=== PATIENT | female | born 1985 | race Caucasian/White ===

== ENCOUNTER 2018-01-26 12:49 | Emergency (ER) | payer SELFPAY ==
--- NOTE | 2018-01-26 13:08 | EDM.PDOC ---
ED HPI GENERAL MEDICAL PROBLEM - General Chief Complaint: Lower Extremity Injury/Pain Stated Complaint: Left knee pain Time Seen by Provider: 01/26/18 13:00 Source of Information: Reports: Patient. Denies: Old Records (No [facility] records available) History Limitations: Reports: No Limitations - History of Present Illness INITIAL COMMENTS - FREE TEXT/NARRATIVE: The patient drove herself to the emergency room via private automobile for evaluation of progressive 8/10 sharp left knee pain after a minor fall secondary to slipping on the ice outside of her friend's house at about 23:00 hours yesterday evening. The patient did take 1000 mg of Tylenol at about 9 AM today with additional ice packs, however no significant improvement in symptoms. She has not had an injury to this knee in the past, although she did have a minor right knee sprain last year. The patient denies any chest pain/ pressure, heart flutter, dizziness, orthostasis, orthopnea, diaphoresis, paresthesias, recent decreased exercise tolerance, or any other anginal-type symptoms. No recent history of abdominal pain, heartburn, nausea, diarrhea, melena, gross hematochezia, or any food intolerance, including fatty foods, etc.. The patient also denies any recent fever, cough, wheezing, dyspnea, etc.. Onset: Sudden Onset Date: 01/25/18 Onset Time: 23:00 Duration: Constant, Getting Worse Location: Reports: Lower Extremity, Left. Denies: Head, Face, Neck, Chest, Abdomen, Back, Pelvis, Upper Extremity, Left, Upper Extremity, Right, Lower Extremity, Right, Radiates to Quality: Reports: Same as Previous Episode, Sharp Severity: Moderate Improves with: Reports: Rest Worsens with: Reports: Movement Context: Reports: Trauma (As above) Associated Symptoms: Denies: Confusion, Chest Pain, Cough, Diaphoresis, Fever/ Chills, Malaise, Nausea/Vomiting, Rash, Shortness of Breath, Syncope, Weakness Treatments RECORD CENTER COORDINATOR: Reports: Acetaminophen, Cold Therapy Left Knee Pain Score (Numeric/FACES): 8 - Related Data Allergies Allergy/AdvReac Type Severity Reaction Status Date / Time No Known Allergies Allergy Verified 01/26/18 12:56 Home Meds: Home Meds Calcium Carbonate 500 mg PO ASDIRECTED PRN 01/26/18 [History] Past Medical History HEENT History: Reports: Allergic Rhinitis, Impaired Vision, Other (See Below). Denies: Cataract, Glaucoma, Hard of Hearing, Macular Degeneration, Retinal Detachment Other HEENT History: Patient wears glasses Cardiovascular History: Reports: None, Other (See Below). Denies: Afib, Aneurysm, Arrhythmia, Blood Clots/VTE/DVT, CAD, Cardiomyopathy, Heart Failure, Heart Murmur, High Cholesterol, Hypertension, Syncope Other Cardiovascular History: She does not know cholesterol status Respiratory History: Reports: None. Denies: Asthma, COPD, Intubation, Difficult , Intubation, Previous, PE, Pneumothorax, Sleep Apnea Gastrointestinal History: Reports: GERD. Denies: Bowel Obstruction, Celiac Disease, Cholelithiasis, Chronic Constipation, Chronic Diarrhea, Fecal Incontinence, Gastritis, GI Bleed, Hepatitis, Inflammatory Bowel Disease, Irritable Bowel Syndrome, Jaundice, Pancreatitis, PUD Genitourinary History: Reports: Chronic Renal Insuffiency, UTI, Recurrent, Other (See Below). 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 First by , with triplet delivery and subsequent follow- up all without complications during pregnancies or deliveries) LMP (Approximate): 1 Week (Normal) Musculoskeletal History: Reports: Arthritis, Back Pain, Chronic, Neck Pain, Chronic, Osteoarthritis, Other (See Below). Denies: Fracture, Gout, RA, SLE Other Musculoskeletal History: Right knee sprain in 2017 Neurological History: Reports: Headaches, Chronic, Migraines. Denies: Cerebral Aneurysms, Concussion, CVA, Head Trauma, MS, Neuropathy, Peripheral, Parkinson's , Seizure, TIA Psychiatric History: Reports: Anxiety, Depression. Denies: Abuse, Victim of, ADD, ADHD, Psych Hospitalization(s), PTSD, Suicide Attempt, Suicidal Ideation Endocrine/Metabolic History: Reports: None. Denies: Diabetes, Gestational, Diabetes, Type I, Diabetes, Type II, Diabetes Mellitus, Type 3c, Hypothyroidism , IDDM Hematologic History: Reports: None. Denies: Anemia, Blood Transfusion(s), Iron Deficiency Immunologic History: Reports: None. Denies: AIDS, HIV, SLE Oncologic (Cancer) History: Reports: None. Denies: Basal Cell Carcinoma, Breast , Cervix, Hodgkin's Lymphoma, Leukemia, Lymphoma, Malignant Melanoma, Non- Hodgkin's Lymphoma, Squamous Cell Carcinoma Dermatologic History: Reports: Eczema, Other (See Below). Denies: Psoriasis Other Dermatologic History: Dry skin - Infectious Disease History Infectious Disease History: Reports: Chicken Pox, Scarlet Fever, Shingles. Denies: C-Difficile, Measles, Meningitis, Mononucleosis, MRSA, Mumps, Rheumatic Fever, Rubella, TB, VRE - Past Surgical History Head Surgeries/Procedures: Reports: None HEENT Surgical History: Reports: Myringotomy w Tube(s), Oral Surgery, Other ( See Below). Denies: Adenoidectomy, Cataract Surgery, Eye Surgery, Laser Surgery , LASIK, Naso-Sinus Surgery, Tonsillectomy Other HEENT Surgeries/Procedures: [place] teeth extraction 4 at age 28. Bilateral PE tubes Cardiovascular Surgical History: Reports: None. Denies: Varicose, Vascular Surgery Respiratory Surgical History: Reports: None. Denies: Thoracentesis GI Surgical History: Reports: None. Denies: Appendectomy, Cholecystectomy, Colonoscopy, EGD, Hernia, Abdominal, Hernia, Inguinal, Hernia Repair/Other Female Surgical History: Reports: Section, Tubal Ligation, Other ( See Below). Denies: Breast Biopsy, D&C, Hysterectomy, Oophorectomy, Salpingo- Oophorectomy Other Female Surgeries/Procedures: Bilateral tubal ligation on 12/04 2013 Endocrine Surgical History: Reports: None. Denies: Thyroid Biopsy Neurological Surgical History: Reports: None. Denies: C-Spine, Discectomy, Laminectomy, Lumbar Spine, Sacral Spine, Spinal Fusion, Vertebroplasty Musculoskeletal Surgical History: Denies: Arthroscopic Procedure, Carpal Tunnel , Ganglion Cyst, Joint Replacement, Knee Replacement, ORIF, Shoulder Surgery Oncologic Surgical History: Reports: None. Denies: Biopsy of Breast Dermatological Surgical History: Reports: Skin Biopsy, Other (See Below) Other Dermatological Surgeries/Procedures: Skin biopsies in November 2017 for evaluation of eczema - Past Imaging History Past Imaging History: Reports: Ultrasound (OB ultrasounds) Social & Family History - Tobacco Use Smoking Status *Q: Current Every Day Smoker Tobacco Use Within Last Twelve Months: Cigarettes Years of Tobacco use: 15 Packs/Tins Daily: 0.5 Packs/Tins Daily Comment: Smoking at age 17 with maximum use of 1 pack per day Used Tobacco, but Quit: No Smoking Cessation Information Provided To Patient: Yes Second Hand Smoke Exposure: No Second Hand Smoke Education Provided: No - Caffeine Use Caffeine Use: Reports: Coffee (1 cup 2 times per week), Soda (1 soda per day). Denies: Energy Drinks, Tea - Alcohol Use Alcohol Use History: Yes Days Per Week of Alcohol Use: 0 (No previous DWIs, problems with alcohol abuse, etc.) Number of Drinks Per Day: 4 (Usually beer) Number of Drinks Per Day Comment: Usually drinks about twice per month Total Drinks Per Week: 0 Alcohol Use in Last Twelve Months: Yes Alcohol Use Frequency: Rarely - Recreational Drug Use Recreational Drug Use: No Drug Use in Last 12 Months: No Recreational Drug Type: Denies: Amphetamines (Speed), Cocaine, Heroin, Inhalants (Glues, Solvents, Aerosols), LSD (Acid), Marijuana/Hashish, Methamphetamine, Oxycodone - Living Situation & Occupation Living situation: Reports: ( in 2013 however since 2016 , 5 children), with Family (children) 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 ED EXAM, GENERAL - Physical Exam Exam: See Below Exam Limited By: No Limitations General Appearance: Alert, WD/WN, No Apparent Distress Head: Atraumatic, Normocephalic. No: Facial Swelling, Facial Tenderness, Sinus Tenderness Neck: Normal Inspection, Supple, Non-Tender, Full Range of Motion. No: Lymphadenopathy (L), Lymphadenopathy (R), Thyromegaly Respiratory/Chest: No Respiratory Distress, Lungs Clear, Normal Breath Sounds, No Accessory Muscle Use, Chest Non-Tender. No: Pleural Rub, Retractions Cardiovascular: Normal Peripheral Pulses, Regular Rate, Rhythm, No Edema, No Gallop, No JVD, No Murmur, No Rub. No: Gallop/S3, Gallop/S4, Friction Rub Peripheral Pulses: 2+: Radial (L), Radial (R), Dorsalis Pedis (L), Dorsalis Pedis (R) GI/Abdominal: Normal Bowel Sounds, Soft, Non-Tender, No Organomegaly, No Distention, No Abnormal Bruit, No Mass, Pelvis Stable. No: Guarding (Female) Exam: Deferred Rectal (Female) Exam: Deferred Back Exam: Normal Inspection, Full Range of Motion. No: CVA Tenderness (L), CVA Tenderness (R), Muscle Spasm Extremities: No Pedal Edema, Normal Capillary Refill, Leg Pain (Mild medial left knee palpation pain with similar pain with range of motion but no instability, crepitation, deformity, effusion, or sign of fracture. Negative anterior drawer, Jeanette's, pivot shift, and Osmin's tests), Limited Range of Motion (Mild secondary to pain). No: Gil's Sign Neurological: Alert, Oriented, CN II-XII Intact, Normal Cognition, Normal Gait, Normal Reflexes (Negative Babinski's), No Motor/Sensory Deficits Psychiatric: Normal Affect, Normal Mood Skin Exam: Warm, Dry, Intact, No Rash, Stud(s) (Inferior auricular regions bilaterally), Tattoo(s) (Triple), Other (Somewhat dry skin). No: Diaphoretic, Wound/Incision Lymphatic: No Adenopathy Course - Vital Signs Text/Narrative:: Vital Signs - 24 hr 01/26/18 13:05 Temperature [ 36.7 C Oral] Pulse, 87 Peripheral [ Right Pulse Oximetry] Respiratory 20 Rate Blood Pressure 134/88 [Right Upper Arm] O2 Sat by Pulse 100 Oximetry Last Recorded V/S: Last Vital Signs Temp 36.7 C 01/26/18 13:05 Pulse 87 01/26/18 13:05 Resp 20 01/26/18 13:05 BP 134/88 01/26/18 13:05 Pulse Ox 100 01/26/18 13:05 Vital Signs - 24 hr 01/26/18 13:05 Temperature [ 36.7 C Oral] Pulse, 87 Peripheral [ Right Pulse Oximetry] Respiratory 20 Rate Blood Pressure 134/88 [Right Upper Arm] O2 Sat by Pulse 100 Oximetry - Orders/Labs/Meds Orders: Active Orders 24 hr Category Date Time Status Knee 3V Lt [CR] Stat Exams 01/26/18 13:08 Ordered Durable Medical Equipment for Discharge [DME for Oth 01/26/18 13:48 Ordered Discharge] [COMM] Routine Durable Medical Equipment for Discharge [DME for Oth 01/26/18 13:48 Ordered Discharge] [COMM] Routine Obtain Past Medical Record [OM.PC] Routine Oth 01/26/18 13:08 Ordered Labs: None Meds: None - Radiology Interpretation Free Text/Narrative:: X-rays of the left knee, 3 views, shows no evidence of significant arthritic changes, dislocation, fracture, effusion, etc. Departure - Departure Time of Disposition: 14:00 Disposition: Home, Self-Care 01 Condition: Good Clinical Impression: Left knee sprain, Osteoarthritis, Peptic reflux disease, Tobacco abuse counseling, Mixed anxiety depressive disorder - Discharge Information Instructions: Knee Sprain, Adult, [id number] Referrals: Emma Dangelo PA-C [Primary Care Provider] - Forms: ED Department Discharge, ED Return to Work/School Form Additional Instructions: 1. Follow-up with your regular provider in one week for reevaluation and adjustment of your work excuse. Possible further workup, including MRI of the knee, orthopedic consultation, etc. depending on your symptoms and exam at that time. 2. Weightbearing as tolerated with knee sleeve to be used at all times with exception of bathing. Use crutches as needed/directed 3. Tylenol 650 mg by mouth every 4 hours and/or OTC ibuprofen 2-3 tabs by mouth every 6 hours with food as directed./needed. 4. BenGay or equivalent, heating pad, and/or ice packs as directed. Leg elevation as directed 5. Stop all tobacco use PREMA as directed/per provided information and consider contacting Quit LIne, etc.. 6. Work excuse- See Form - Problem List & Annotations (1) Left knee sprain SNOMED Code(s): 71674050 Code(s): S83.92XA - SPRAIN OF UNSPECIFIED SITE OF LEFT KNEE, INITIAL ENCOUNTER Status: Acute Priority: High Current Visit: No Onset Date: Annotation/Comment:: Symptomatic relief as per discharge instructions. Further orthopedic consultation, MRI, etc. depending on her clinical course. Work excuse provided. Neoprene knee sleeve applied by the nurse with patient also provided crutches and instructions on proper use. Note that the patient apparently does not have restrictions on using NSAIDs, despite her distant history of nonspecific unknown type of renal insufficiency as a child as above. NSAIDs are to be used with discretion secondary to this history, however, with this discussed with the patient today Qualifiers: Encounter type: initial encounter Involved ligament of knee: medial collateral ligament Qualified Code(s): S83.412A - Sprain of medial collateral ligament of left knee, initial encounter (2) Osteoarthritis SNOMED Code(s): 872312731 Code(s): M19.90 - UNSPECIFIED OSTEOARTHRITIS, UNSPECIFIED SITE Status: Chronic Priority: Medium Current Visit: No Annotation/Comment:: Otherwise stable by history with symptoms usually in her low back Qualifiers: Osteoarthritis location: multiple joints Osteoarthritis type: primary Qualified Code(s): M15.0 - Primary generalized (osteo)arthritis (3) Tobacco abuse counseling SNOMED Code(s): 123485091, 685156604, 324323038 Code(s): Z71.6 - TOBACCO ABUSE COUNSELING Status: Chronic Priority: Medium Current Visit: No Annotation/Comment:: Tobacco cessation strongly encouraged with information provided at time of discharge, and the patient also counseled on the risks of tobacco smoke exposure for her children, etc. (4) Mixed anxiety depressive disorder SNOMED Code(s): 707935825 Code(s): F41.8 - OTHER SPECIFIED ANXIETY DISORDERS Status: Chronic Priority: Medium Current Visit: No Annotation/Comment:: Stable by history with patient stopping medications on one year ago. Continue to observe closely through your regular provider (5) Peptic reflux disease SNOMED Code(s): 975559053 Code(s): K21.9 - GASTRO-ESOPHAGEAL REFLUX DISEASE WITHOUT ESOPHAGITIS Status: Chronic Priority: Medium Current Visit: No Annotation/Comment:: Stable by history - Problem List Review Problem List Initiated/Reviewed/Updated: Yes - My Orders Last 24 Hours: My Active Orders 01/26/18 13:08 Knee 3V Lt [CR] Stat Obtain Past Medical Record [OM.PC] Routine 01/26/18 13:48 Durable Medical Equipment for Discharge [DME for Discharge] [COMM] Routine Durable Medical Equipment for Discharge [DME for Discharge] [COMM] Routine - Assessment/Plan Last 24 Hours: My Active Orders 01/26/18 13:08 Knee 3V Lt [CR] Stat Obtain Past Medical Record [OM.PC] Routine 01/26/18 13:48 Durable Medical Equipment for Discharge [DME for Discharge] [COMM] Routine Durable Medical Equipment for Discharge [DME for Discharge] [COMM] Routine Assessment:: As above Plan: As above. Extensive precautions were given to the patient, who is in agreement with the treatment plan. See Patient Instructions for further treatment and plan.
== END 2018-01-26 14:00 | disposition home or self-care (01) ==
LOC: LL.ED 12:49
DX: S83.92XA Sprain of unspecified site of left knee, initial encounter (principal); M19.90 Unspecified osteoarthritis, unspecified site; F41.8 Other specified anxiety disorders; M25.562 Pain in left knee; K21.9 Gastro-esophageal reflux disease without esophagitis; N18.9 Chronic kidney disease, unspecified; Z87.441 Personal history of nephrotic syndrome; Z87.442 Personal history of urinary calculi; F17.210 Nicotine dependence, cigarettes, uncomplicated; W00.0XXA Fall on same level due to ice and snow, initial encounter
CPT/HCPCS: 73562-LT; 99284

== ENCOUNTER 2019-01-27 15:08 | Emergency (ER) | payer SELFPAY ==
[2019-01-27] MEDS ORDERED: Ondansetron 4 MG Tab.DIS PO ONE (15:25)
--- NOTE | 2019-01-27 16:20 | EDM.PDOC ---
ED HPI GENERAL MEDICAL PROBLEM - General Chief Complaint: Head Injury Stated Complaint: fall, lightheaded, nausea Time Seen by Provider: 01/27/19 15:21 Source of Information: Reports: Patient History Limitations: Reports: No Limitations - History of Present Illness INITIAL COMMENTS - FREE TEXT/NARRATIVE: Patient is a 33-year-old who was outside walking slipped on the ice hitting her head in the occiput area now complaining of lightheadedness and some nausea no vomiting thinks she had a concussion does have some photophobia Onset: Sudden Duration: Day(s): (One day), Getting Worse Location: Reports: Head Quality: Reports: Ache, Throbbing Severity: Mild Improves with: Reports: Other (Sitting up) Worsens with: Reports: Other (Laying down) Associated Symptoms: Reports: No Other Symptoms 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 Denies: Cataract, Glaucoma, Hard of Hearing, Macular Degeneration, Retinal Detachment Other HEENT History: Patient wears glasses Cardiovascular History: Reports: None, Other (See Below). Denies: Afib, Aneurysm, Arrhythmia, Blood Clots/VTE/DVT, CAD, Cardiomyopathy, Heart Failure, Heart Murmur, High Cholesterol, Hypertension, Syncope Other Cardiovascular History: She does not know cholesterol status Respiratory History: Reports: None. Denies: Asthma, COPD, Intubation, Difficult , Intubation, Previous, PE, Pneumothorax, Sleep Apnea Gastrointestinal History: Reports: GERD. Denies: Bowel Obstruction, Celiac Disease, Cholelithiasis, Chronic Constipation, Chronic Diarrhea, Fecal Incontinence, Gastritis, GI Bleed, Hepatitis, Inflammatory Bowel Disease, Irritable Bowel Syndrome, Jaundice, Pancreatitis, PUD Genitourinary History: Reports: Chronic Renal Insuffiency, UTI, Recurrent, Other (See Below). 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 Denies: Dysfunctional Uterine Bleeding, Endometriosis, Fibroids, Polycystic Ovaries, Spontaneous , Therapeutic Musculoskeletal History: Reports: Arthritis, Back Pain, Chronic, Neck Pain, Chronic, Osteoarthritis, Other (See Below). Denies: Fracture, Gout, RA, SLE Other Musculoskeletal History: Right knee sprain in 2017 Neurological History: Reports: Headaches, Chronic, Migraines. Denies: Cerebral Aneurysms, Concussion, CVA, Head Trauma, MS, Neuropathy, Peripheral, Parkinson's , Seizure, TIA Psychiatric History: Reports: Anxiety, Depression. Denies: Abuse, Victim of, ADD, ADHD, Psych Hospitalization(s), PTSD, Suicide Attempt, Suicidal Ideation Endocrine/Metabolic History: Reports: None. Denies: Diabetes, Gestational, Diabetes, Type I, Diabetes, Type II, Diabetes Mellitus, Type 3c, Hypothyroidism , IDDM Hematologic History: Reports: None. Denies: Anemia, Blood Transfusion(s), Iron Deficiency Immunologic History: Reports: None. Denies: AIDS, HIV, SLE Oncologic (Cancer) History: Reports: None. Denies: Basal Cell Carcinoma, Breast , Cervix, Hodgkin's Lymphoma, Leukemia, Lymphoma, Malignant Melanoma, Non- Hodgkin's Lymphoma, Squamous Cell Carcinoma Dermatologic History: Reports: Eczema, Other (See Below). Denies: Psoriasis Other Dermatologic History: Dry skin - Infectious Disease History Infectious Disease History: Reports: Chicken Pox, Scarlet Fever, Shingles. Denies: C-Difficile, Measles, Meningitis, Mononucleosis, MRSA, Mumps, Rheumatic Fever, Rubella, TB, VRE - Past Surgical History Head Surgeries/Procedures: Reports: None HEENT Surgical History: Reports: Myringotomy w Tube(s), Oral Surgery, Other ( See Below). Denies: Adenoidectomy, Cataract Surgery, Eye Surgery, Laser Surgery , LASIK, Naso-Sinus Surgery, Tonsillectomy Other HEENT Surgeries/Procedures: [place] teeth extraction 4 at age 28. Bilateral PE tubes Cardiovascular Surgical History: Reports: None. Denies: Varicose, Vascular Surgery Respiratory Surgical History: Reports: None. Denies: Thoracentesis GI Surgical History: Reports: None. Denies: Appendectomy, Cholecystectomy, Colonoscopy, EGD, Hernia, Abdominal, Hernia, Inguinal, Hernia Repair/Other Female Surgical History: Reports: Section, Tubal Ligation, Other ( See Below). Denies: Breast Biopsy, D&C, Hysterectomy, Oophorectomy, Salpingo- Oophorectomy Other Female Surgeries/Procedures: Bilateral tubal ligation on 12/04 2013 Endocrine Surgical History: Reports: None. Denies: Thyroid Biopsy Neurological Surgical History: Reports: None. Denies: C-Spine, Discectomy, Laminectomy, Lumbar Spine, Sacral Spine, Spinal Fusion, Vertebroplasty Oncologic Surgical History: Reports: None. Denies: Biopsy of Breast Dermatological Surgical History: Reports: Skin Biopsy, Other (See Below) Other Dermatological Surgeries/Procedures: Skin biopsies in November 2017 for evaluation of eczema - Past Imaging History Past Imaging History: Reports: Ultrasound (OB ultrasounds) Social & Family History - Caffeine Use Caffeine Use: Reports: Coffee (1 cup 2 times per week), Soda (1 soda per day). 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 ED EXAM, HEAD INJURY - Physical Exam Exam: See Below Exam Limited By: No Limitations General Appearance: Alert, WD/WN, No Apparent Distress Head: Atraumatic, Normocephalic Nexus Criteria: Posterior, Midline Cervical Tenderness. No: Evidence of Intoxication, Altered Level of Consciousness, Focal Neurological Deficit, Painful Distraction Injuries Ears: Normal External Exam, Normal Canal, Hearing Grossly Normal, Normal TMs Nose: Normal Inspection, Normal Mucousa, No Blood Throat/Mouth: Normal Inspection, Normal Lips, Normal Teeth, Normal Gums, Normal Oropharynx, Normal Voice, No Airway Compromise Neck: Non-Tender, Full Range of Motion, Normal Alignment, Normal Inspection Respiratory: No Respiratory Distress, Lungs Clear, Normal Breath Sounds, No Accessory Muscle Use, Chest Non-Tender Cardiovascular: Normal Peripheral Pulses, Regular Rate, Rhythm, No Edema, No Gallop, No JVD, No Murmur, No Rub GI/Abdominal Exam: Normal Bowel Sounds, Soft, Non-Tender, No Organomegaly, No Distention, No Abnormal Bruit, No Mass (Female) Exam: Normal Bimanual Exam, Deferred Rectal (Female) Exam: Deferred Back Exam: Decreased Range of Motion, Muscle Spasm Extremities: Normal Inspection, Normal Range of Motion, Non-Tender, No Pedal Edema, Normal Capillary Refill Neurologic: pattern gater II-XII nml As Tested, No Motor/Sensory Deficits, Alert, Normal Mood/Affect, Oriented x 3 Course - Vital Signs Last Recorded V/S: Last Vital Signs Temp 98.6 F 01/27/19 15:13 Pulse 96 01/27/19 15:13 Resp 16 01/27/19 15:13 BP 115/81 01/27/19 15:13 Pulse Ox 99 01/27/19 15:13 Departure - Departure Time of Disposition: 16:20 Disposition: Home, Self-Care 01 Condition: Fair Clinical Impression: Concussion, Concussion injury of brain - Discharge Information *PRESCRIPTION DRUG MONITORING PROGRAM REVIEWED*: No *COPY OF PRESCRIPTION DRUG MONITORING REPORT IN PATIENT LOIDA: No Instructions: Concussion, Adult Referrals: Emma Dangelo PA-C [Primary Care Provider] - Care Plan Goals: Concussion precautions were taken and instructions given and postconcussion injury patient was placed to rest no pretibial no light stimulation no verbal stimulation for a week follow-up as needed with primary
== END 2019-01-27 16:40 | disposition home or self-care (01) ==
LOC: LL.ED 15:08
DX: S06.0X9A Concussion with loss of consciousness of unspecified duration, initial encounter (principal); N18.9 Chronic kidney disease, unspecified; W00.0XXA Fall on same level due to ice and snow, initial encounter
CPT/HCPCS: 70450; 99284-25; A9270-GY

== ENCOUNTER 2022-08-20 15:10 | Emergency (ER) | payer MEDICAID ==
[2022-08-20 16:09] LABS: ANION GAP 12.8 meq/L (7-15)
== END 2022-08-20 16:25 | disposition home or self-care (01) ==
LOC: LL.ED 15:10
DX: N64.4 Mastodynia (principal)
CPT/HCPCS: 36415; 80053; 83605; 85025; 99283; 99284

== ENCOUNTER 2022-10-16 01:34 | Emergency (ER) | payer MEDICAID | END 2022-10-16 02:26 | disposition home or self-care (01) | LOC: LL.ED 01:34 | DX: S60.222A Contusion of left hand, initial encounter (principal); F17.210 Nicotine dependence, cigarettes, uncomplicated; W06.XXXA Fall from bed, initial encounter | CPT/HCPCS: 73130-LT; 99283; 99284 ==

== ENCOUNTER 2023-03-14 09:14 | Emergency (ER) | payer MEDICAID ==
[2023-03-14] MEDS: Acetaminophen 500 MG Tab PO ONE (09:57)
== END 2023-03-14 10:52 | disposition home or self-care (01) ==
LOC: LL.ED 09:14
DX: S06.0X0A Concussion without loss of consciousness, initial encounter (principal); F17.210 Nicotine dependence, cigarettes, uncomplicated; Z79.899 Other long term (current) drug therapy; W20.8XXA Other cause of strike by thrown, projected or falling object, initial encounter; Y92.512 Supermarket, store or market as the place of occurrence of the external cause; Y99.0 Civilian activity done for income or pay
CPT/HCPCS: 70450; 99283; A9270

== ENCOUNTER 2023-12-17 17:51 | Emergency (ER) | payer MEDICAID ==
[2023-12-17 18:25] LABS: BASOPHILS ABSOLUTE AUTO 0.03 K/uL (0.00-0.20); BASOPHILS PERCENT AUTO 0.3 % (0.0-2.0); EOSINOPHILS ABSOLUTE AUTO 0.21 K/uL (0.00-0.50); EOSINOPHILS PERCENT AUTO 2.1 % (0.0-5.0); HEMATOCRIT 37.4 % (34.0-46.0); LYMPHOCYTES ABSOLUTE AUTO 2.44 K/uL (0.50-3.50); LYMPHOCYTES PERCENT AUTO 24.3 % (10.0-50.0); MEAN CORPUSCULAR HEMOGLOBIN 28.1 pg (28.2-33.3); MEAN CORPUSCULAR HGB CONC 32.1 g/dL (31.7-36.0); MEAN CORPUSCULAR VOLUME 87.6 fL (84.0-98.0); NEUTROPHILS ABSOLUTE AUTO 6.57 K/uL (1.40-7.00); NEUTROPHILS PERCENT AUTO 65.3 % (45.0-80.0); PLATELET COUNT,PLT 301 K/uL (150-350); RED BLOOD CELL COUNT 4.27 M/uL (3.77-5.09); RED CELL DISTRIBUTION WIDTH 13.8 % (11.2-14.1); WHITE BLOOD CELL COUNT,WBC 10.1 K/uL (4.0-10.2)
[2023-12-17 18:43] LABS: ALANINE AMINOTRANSFERASE,ALT 22 U/L (12-78); ALBUMIN 3.7 g/dL (3.4-5.0); ALKALINE PHOSPHATASE 78 IU/L (46-116); ANION GAP 4.9 meq/L (7-15); ASPARTATE AMNIOTRANSFERASE,AST 9 U/L (15-37); BILIRUBIN TOTAL 0.2 mg/dL (0.2-1.0); BLOOD UREA NITROGEN,BUN 16 mg/dL (7-18); CALCIUM 8.7 mg/dL (8.5-10.1); CARBON DIOXIDE,CO2 31.1 mmol/L (21.0-32.0); CHLORIDE,CL 106 mmol/L (98-107); CREATININE 0.96 mg/dL (0.51-1.17); GLUCOSE RANDOM 83 mg/dL (70-99); MAGNESIUM 1.8 mg/dL (1.8-2.4); SODIUM,NA 142 mmol/L (136-145)
[2023-12-17] MEDS: Lidocaine 1% 5 ML VIAL INJECT ONE ×2 (18:44→19:09)
[2023-12-17 18:47] LABS: ESTIMATED GFR 79 mL/min (>=60)
[2023-12-17 19:07] LABS: APPEARANCE,URINE SLIGHTLY CLOUDY; BILIRUBIN,URINE NEGATIVE (NEGATIVE); COLOR,URINE YELLOW; GLUCOSE,URINE NEGATIVE (NEGATIVE); KETONES,URINE NEGATIVE (NEGATIVE); LEUKOCYTE ESTERASE,URINE NEGATIVE (NEGATIVE); NITRITE,URINE POSITIVE (NEGATIVE); OCCULT BLOOD,URINE NEGATIVE (NEGATIVE); PH,URINE 5.5 (5.0-9.0); PROTEIN,URINE TRACE mg/dL (NEGATIVE); UROBILINOGEN,URINE 0.2 E.U./dL (0.2-1.0)
[2023-12-17] MEDS: cefTRIAXone 1 GM Vial IM ONE (19:09)
[2023-12-17 19:11] LABS: BACTERIA,URINE MODERATE /HPF (NONE TO FEW); EPITHELIAL CELLS,URINE FEW /LPF; MUCUS,URINE RARE /LPF (NEGATIVE); RBC,URINE 0-5 /HPF
[2023-12-17 19:11] LABS: AMPHETAMINES SCREEN, URINE POSITIVE (NEGATIVE); BARBITURATE SCREEN,URINE NEGATIVE (NEGATIVE); BENZODIAZEPINES SCREEN,URINE NEGATIVE (NEGATIVE); COCAINE METABOLITES,URINE NEGATIVE (NEGATIVE); EDDP,URINE SCREEN NEGATIVE (NEGATIVE); METHAMPHETAMINES SCREEN, URINE POSITIVE (NEGATIVE); TCA SCREEN,URINE NEGATIVE (NEGATIVE); THC SCREEN,URINE 50 NG/ML NEGATIVE (NEGATIVE)
[2023-12-17 19:14] LABS: BUPRENORPHINE SCREEN,URINE NEGATIVE (NEGATIVE); OXYCODONE SCREEN,URINE NEGATIVE (NEGATIVE)
[2023-12-17] MEDS: Ketorolac 15 MG/ML SDV IM ONE (19:31)
[2023-12-17] MEDS: Take Home: Doxycycline 100 MG Cap, 4 Cap Pack PO ONE (19:32)
[2023-12-17] MEDS: Acetaminophen 325 MG Tab PO ONE (19:32)
== END 2023-12-17 19:45 | disposition home or self-care (01) ==
LOC: LL.ED 17:51
DX: N76.4 Abscess of vulva (principal); F15.20 Other stimulant dependence, uncomplicated; N18.9 Chronic kidney disease, unspecified; Z87.891 Personal history of nicotine dependence
CPT/HCPCS: 36415; 80053; 80305-QW; 81001; 83735; 85025; 87070; 87086; 87088; 87186; 87205; 96372; 99283-25; A9270-GY; J0696; J1885; J3490